=== PATIENT | female | born 1985 | race Caucasian/White ===

== ENCOUNTER 2016-10-16 03:20 | Emergency (ER) | payer MEDICAID ==
[~2016-10-16] VITALS: Ht 160 cm; Wt 78.5 kg
[2016-10-16 04:41] VITALS: BP 130/80
== END 2016-10-16 04:41 | disposition home or self-care (01) ==
LOC: ED 03:20
DX: R05 Cough (principal); J02.9 Acute pharyngitis, unspecified; H92.01 Otalgia, right ear